=== PATIENT | male | born 1955 | race Caucasian/White ===

== ENCOUNTER 2017-04-12 15:53 | Emergency (ER) | payer BC, OTHER ==
[2017-04-12 16:10] VITALS: BP 123/78
--- NOTE | 2017-04-12 17:29 | UC ---
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 to prevent falling twisted wrist it swelled over radius now less pain but still with limited side to side motion this happened a week or more ago at work he is right handed - History Of Current Complaint Chief Complaint: UCUpperExtremity Stated Complaint: WRIST INJURY Time Seen by Provider: 04/12/17 16:57 Hx Obtained From: Family/English Composition Teacher Onset/Duration: Sudden Onset, Lasting Days Severity Initially: Moderate Severity Currently: Mild Pain Intensity: 4 Pain Scale Used: 0-10 Numeric Character Of Pain: Dull, Aching Aggravating Factor(s): Movement, Lifting Alleviating Factor(s): Rest, Other - brace Associated Signs And Symptoms: Positive: Swelling Related History: Occupational Injury, Dominant Hand Right - Allergies/Home Medications Allergies/Adverse Reactions: Allergies Allergy/AdvReac Type Severity Reaction Status Date / Time No Known Allergies Allergy Verified 04/12/17 16:11 Home Medications: Home Medications NK [No Home Medications Reported] 04/12/17 [History Confirmed 04/12/17] PMH/Surg Hx/FS Hx/Imm Hx Previously Healthy: Yes Other History Of: Hepatitis C - Surgical History Surgical History: Yes Surgery Procedure, Year, and Place: Left shoulder replaced - Family History Known Family History: Positive: Hypertension, Diabetes - Social History Alcohol Use: None Substance Use Type: None Smoking Status (MU): Former Smoker Type: Cigarettes Review of Systems Constitutional: Negative Skin: Negative Eyes: Negative ENT: Negative Respiratory: Negative Cardiovascular: Negative Gastrointestinal: Negative Genitourinary: Negative Motor: Negative Neurovascular: Negative Musculoskeletal: Arthralgia Neurological: Negative Psychological: Negative Is Patient Immunocompromised?: No All Other Systems Reviewed And Are Negative: Yes Physical Exam Triage Information Reviewed: Yes Appearance: Well-Appearing, No Pain Distress, Well-Nourished Vital Signs: Initial Vital Signs Temp 97.3 F 04/12/17 16:08 Pulse 83 04/12/17 16:08 Resp 18 04/12/17 16:08 BP 123/78 04/12/17 16:08 Pulse Ox 98 04/12/17 16:08 Vital Signs Reviewed: Yes Eyes: Positive: Conjunctiva Clear ENT: Positive: Pharynx normal. Negative: Nasal congestion, Nasal drainage, Trismus, Muffled/hoarse voice Neck: Positive: Supple, Nontender, No Lymphadenopathy Respiratory: Positive: Lungs clear, Normal breath sounds, No respiratory distress, No accessory muscle use Cardiovascular: Positive: RRR, No Murmur Musculoskeletal: Positive: ROM Limited @ - right wrist Neurological Exam: Normal Neurological: Positive: Alert Psychological Exam: Normal Skin Exam: Normal Diagnostics - Radiology No standard instances Xray Interpretation: No Acute Changes Radiology Interpretation Completed By: ED Physician Hand/Wrist Course/Dx - Differential Dx/Diagnosis Provider Diagnoses: right wrist injury. ? sprain vs occult fx vs cartilage injury Discharge - Discharge Plan Condition: Stable Disposition: HOME Patient Education Materials: Wrist Injury (ED) Forms: *Work Release Referrals: Girish Wilkerson MD [Medical Doctor] - As Soon As Possible Additional Instructions: thumb spica splint ice twice daily advil or aleve you should see a specialist about this injury with a normal xr you still could have a significant injury Images Hands: 1 - tender slight swelling/minimal snuff box tenderness, full flexion/extension ,
--- NOTE | 2017-04-12 17:37 | RAD ---
INDICATION: One week of pain following "twisting" injury COMPARISON: None. TECHNIQUE: 4 views right wrist. REPORT: The visualized bones are properly aligned and well corticated. The joint spaces are normal.There is no fracture, dislocation or other focal osseous abnormality. IMPRESSION: Normal radiograph of the right wrist. If the patient's symptoms persist, follow-up imaging is recommended.
== END 2017-04-12 17:25 | disposition home or self-care (01) ==
LOC: UCEAST 15:53
DX: S69.91XA Unspecified injury of right wrist, hand and finger(s), initial encounter (principal); X50.0XXA Overexertion from strenuous movement or load, initial encounter; Y92.9 Unspecified place or not applicable
CPT/HCPCS: 99211; G0463